=== PATIENT | male | born 1925 | race Caucasian/White ===

== ENCOUNTER 2016-12-14 12:32 | Emergency (ER) | payer MEDICARE ==
[~2016-12-14] VITALS: Ht 180.3 cm; Wt 75.0 kg
[~2016-12-14 12:32] MED LIST: ATOR40TA PO; CLON.5 PO; CORE25TA PO; FURO1TAB93 PO; HYDR-3533 PO; HYDR50TA15 PO; LEVO75TA3 PO; LISI-586 PO; O2
[2016-12-14 13:24] VITALS: BP 132/75; PULSE 65; RESP 16; TEMP 98.3; O2SAT 96
[2016-12-14] MEDS ORDERED: SODIUM CHLORIDE 0.9% FLUSH 5 ML FLUSH IVF PRN (14:15)
--- NOTE | 2016-12-14 14:17 | PD ---
HPI Chief Complaint: Lump, Cyst, Hernia Time Seen by Provider: 14:15 Travel History International Travel<30 days: No Contact w/Intl Traveler<30days: No Traveled to known affect area: No History of Present Illness HPI Patient comes in by EMS for report evaluation of mass on her right side of his neck patient reports it has been there for approximately a week he's been evaluated reports he is supposed to have surgery next Tuesday. Patient reports that he does have some pain with that occasionally as well as pain all over his body which he only takes pain medicine. Patient denies any chest pain, shortness of breath, nausea, vomiting, fevers. Patient reports pain around the lump primary to palpation. Per EMS patient's sent him in to have his hospice switched as well. PFSH Past Medical History Hx Anticoagulant Therapy: Yes Arthritis: Yes Autoimmune Disease: Yes Blood Disorders: No Depression: Yes Heart Rhythm Problems: No Cancer: No Cardiac Catheterization: Yes Cardiovascular Problems: Yes High Cholesterol: Yes Chest Pain: Yes Congestive Heart Failure: Yes Cerebrovascular Accident: No Coronary Artery Disease: Yes Diabetes: Yes Patient Takes Glucophage: No Diminished Hearing: No Endocrine: No Gastrointestinal Disorders: No Headaches: No Hypertension: Yes Kidney Stones: Yes Musculoskeletal: Yes Neurologic: No Psychiatric: No Respiratory: No Myocardial Infarction: Yes Seizures: No Sickle Cell Disease: No Thyroid Disease: Yes Tetanus Vaccination: > 5 Years Influenza Vaccination: No Past Surgical History AICD: No Cardiac Surgery: Yes (STENTS 2000) Coronary Stent: Yes (X 4) Joint Replacement: Yes (L TOTAL KNEE) Pacemaker: No Tonsillectomy: Yes Other Surgery: Yes Social History Alcohol Use: No Tobacco Use: No Substance Use: No Allergies-Medications (Allergen,Severity, Reaction): Coded Allergies: No Known Allergies (Verified , 12/14/16) Reported Meds & Prescriptions Reported Meds & Active Scripts Active Augmentin (Amoxicillin-Clavulanate) 875-125 mg Tab 875 Mg PO BID not for use in CrCl <30 ml/min. Reported Torsemide 20 Mg Tab 20 Mg PO DAILY Ativan (Lorazepam) 0.5 Mg Tab 0.5 Mg PO Q6H PRN Miralax Powder (Polyethylene Glycol 3350 Powder) 17 Gm Powd 17 Gm PO DAILY Mix and dissolve one measuring cap-ful (17 grams) in water or juice. Senna S (Sennosides-Docusate Sodium) 8.6-50 Mg Tab 1 Tab PO BID Colace (Docusate Sodium) 100 Mg Cap 100 Mg PO BID Duoneb (Ipratropium-Albuterol Neb) 0.5-2.5 Mg/3 Ml Neb 1 Nebule INH Q6HR NEB PRN Vesicare (Solifenacin) 5 Mg Tab 5 Mg PO DAILY Flomax (Tamsulosin HCl) 0.4 Mg Cap 0.4 Mg PO HS [place] Thyroid (Thyroid) 120 Mg Tab 120 Mg PO DAILY Pantoprazole (Pantoprazole Sodium) 40 Mg Tab 40 Mg PO DAILY Tylenol-Codeine #3 (Acetaminophen-Codeine) 300-30 mg Tab 1 Tab PO Q4H PRN K-Tab (Potassium Chloride) 20 Meq Tab 20 Meq PO BID Coumadin (Warfarin) 3 Mg Tab 3 Mg PO MOFR Coumadin (Warfarin) 2 Mg Tab 2 Mg PO SUTUWETHSA Lisinopril 5 Mg Tab 12.5 Mg PO DAILY Glipizide 5 Mg Tab 2.5 Mg PO BIDAC Take 30 minutes before a meal Restoril (Temazepam) 15 Mg Cap 15 Mg PO HS Lortab (Hydrocodone-Acetaminophen) 5-325 Mg Tab 1 Tab PO Q6H PRN Hydralazine (Hydralazine HCl) 25 Mg Tab 25 Mg PO BID Take with a meal Carvedilol 6.25 Mg Tab 6.25 Mg PO BID Review of Systems Except as stated in HPI: all other systems reviewed are Neg Physical Exam Narrative GENERAL: Well-developed, well nourished, in no acute distress, and non-ill appearing. SKIN: Warm and dry. HEAD: Atraumatic. Normocephalic. EYES: Pupils equal and round. EOMI. No scleral icterus. No injection or drainage. ENT: No nasal bleeding or discharge. Mucous membranes pink and moist. Uvula is midline. Patient speaking in full sentences and swallowing own saliva. NECK: Trachea midline. Supple. No nuclear rigidity. Tender right parotid mass. CARDIOVASCULAR: Regular rate and rhythm. No murmur appreciated. RESPIRATORY: No accessory muscle use. No respiratory distress. Clear to auscultation. Breath sounds equal bilaterally. GASTROINTESTINAL: Abdomen soft, non-tender, nondistended. Hepatic and splenic margins not palpable. Normal bowel sounds 4. No pulsatile mass. MUSCULOSKELETAL: No obvious deformities. No clubbing. No cyanosis. No edema. NEUROLOGICAL: Awake and alert. No obvious cranial nerve deficits. Motor grossly within normal limits. Normal speech. PSYCHIATRIC: Appropriate mood and affect; insight and judgment normal. Data Data Last Documented VS Vital Signs Date Time Temp Pulse Resp B/P Pulse Ox O2 Delivery O2 Flow Rate FiO2 12/14/16 20:19 63 16 135/90 97 12/14/16 18:31 Room Air 12/14/16 13:24 98.3 Orders Basic Metabolic Panel (Bmp) (12/14/16 14:10) Complete Blood Count With Diff (12/14/16 14:10) Ecg Monitoring (12/14/16 14:10) Iv Access Insert/Monitor (12/14/16 14:10) Oximetry (12/14/16 14:10) Sodium Chloride 0.9% Flush (Ns Flush) (12/14/16 14:15) Prothrombin Time / Inr (Pt) (12/14/16 14:10) Act Partial Throm Time (Ptt) (12/14/16 14:10) Ct Facial Bones W/O Iv Cont (12/14/16 ) Labs Laboratory Tests Test 12/14/16 14:20 White Blood Count 11.2 TH/MM3 Red Blood Count 4.11 MIL/MM3 Hemoglobin 11.8 GM/DL Hematocrit 35.6 % Mean Corpuscular Volume 86.7 FL Mean Corpuscular Hemoglobin 28.8 PG Mean Corpuscular Hemoglobin 33.2 % Concent Red Cell Distribution Width 15.8 % Platelet Count 178 TH/MM3 Mean Platelet Volume 7.4 FL Neutrophils (%) (Auto) 85.5 % Lymphocytes (%) (Auto) 8.7 % Monocytes (%) (Auto) 4.9 % Eosinophils (%) (Auto) 0.4 % Basophils (%) (Auto) 0.5 % Neutrophils # (Auto) 9.5 TH/MM3 Lymphocytes # (Auto) 1.0 TH/MM3 Monocytes # (Auto) 0.5 TH/MM3 Eosinophils # (Auto) 0.0 TH/MM3 Basophils # (Auto) 0.1 TH/MM3 CBC Comment DIFF FINAL Differential Comment Prothrombin Time 88.8 SEC Prothromb Time International 7.4 RATIO Ratio Activated Partial 63.2 SEC Thromboplast Time Sodium Level 135 MEQ/L Potassium Level 3.9 MEQ/L Chloride Level 100 MEQ/L Carbon Dioxide Level 26.6 MEQ/L Anion Gap 8 MEQ/L Blood Urea Nitrogen 40 MG/DL Creatinine 1.68 MG/DL Estimat Glomerular Filtration 39 ML/MIN Rate Random Glucose 195 MG/DL Calcium Level 8.5 MG/DL [facility] Medical Decision Making Medical Screen Exam Complete: Yes Emergency Medical Condition: Yes Differential Diagnosis Abscess, cellulitis, metastatic disease, parotiditis, other Narrative Course Discussed patient with this his director of home care hospice Lucio العلي, who reports patient is in hospice for heart disease. Reports lump began on the left improvement however over over the weekend developed swelling on the right. Reports left has improved. Reports patient has been on pain meds and amoxicillin for this. Denies any fevers. Patient in no obvious distress upon re-evaluation. All pertinent laboratory/ Radiology result(s) discussed with patient. Discussed patient with Dr. Palacio, who saw and evaluated the patient who is in agreement with plan of care and disposition. Any questions/concerns in reference to patient diagnosis/ condition discussed and clarified prior to patient's discharge. Reinforced sheer importance of close follow up with patient's primary physician or primary care clinic. Instructed patient to return to ED immediately, if symptoms return/ worsen. Pt showed understanding of above instructions. Further instructions and recommendations were detailed in discharge paperwork. Pt left without difficulty out of ED at discharge. Diagnosis Primary Impression: Parotiditis Patient Instructions: General Instructions Additional Instructions: Follow-up with your primary care physician into the days for reevaluation and recheck of your INR. Do not take Coumadin until INR rechecked and instructed use of by her primary care doctor. Stop taking amoxicillin and take antibiotic prescribed today. Continue doing warm compresses. Take all medication as prescribed. Return to the emergency department if symptoms get worse. Med/Other Pt SpecificInfo: Prescription(s) given Scripts Amoxicillin-Clavulanate (Augmentin)875-125 mg [id number] Mg PO BID #10 TAB Ref 0 not for use in CrCl <30 ml/min. Prov:Luis Palacio MD 12/14/16 Disposition: 01 DISCHARGE HOME Condition: Stable Juan Sharp Dec 14, 2016 14:17
[2016-12-14 14:32] LABS: AUTOMATED NEUTROPHIL # 9.5 TH/MM3 (1.8-7.7); BASOPHIL # 0.1 TH/MM3 (0-0.2); BASOPHIL % 0.5 % (0.0-2.0); EOSINOPHIL % 0.4 % (0.0-4.0); HEMATOCRIT 35.6 % (39.0-51.0); HEMO FLAGS DIFF FINAL; LYMPH % 8.7 % (9.0-44.0); MEAN CELL VOLUME 86.7 FL (80.0-100.0); MEAN CORPUSCULAR HEMOGLOBIN 28.8 PG (27.0-34.0); MEAN CORPUSCULAR HGB CONC 33.2 % (32.0-36.0); MONO % 4.9 % (0.0-8.0); NEUT % 85.5 % (16.0-70.0); PLATELET COUNT 178 TH/MM3 (150-450); RED BLOOD COUNT 4.11 MIL/MM3 (4.50-5.90); RED CELL DISTRIBUTION WIDTH 15.8 % (11.6-17.2); WHITE BLOOD COUNT 11.2 TH/MM3 (4.0-11.0)
[2016-12-14 14:53] LABS: BICARBONATE 26.6 MEQ/L (21.0-32.0)
[2016-12-14 15:01] LABS: POTASSIUM 3.9 MEQ/L (3.5-5.1)
[2016-12-14 15:20] LABS: APTT (PATIENT) 63.2 SEC (24.3-30.1); PROTHROMBIN TIME - PATIENT 88.8 SEC (9.8-11.6)
[2016-12-14 15:56] LABS: INTERNATIONAL NORMALIZED RATIO 7.4 RATIO
[2016-12-14] MEDS ORDERED: LISI-519 PO (16:11)
[2016-12-14] MEDS ORDERED: LORA-392 PO (16:11)
[2016-12-14] MEDS ORDERED: PANT40TA3 PO (16:11)
[2016-12-14] MEDS ORDERED: HYDR25TA35 PO (16:11)
[2016-12-14] MEDS ORDERED: TYLETAB34 PO (16:11)
[2016-12-14] MEDS ORDERED: GLIP5TAB8 PO (16:11)
[2016-12-14] MEDS ORDERED: HYDR-3533 PO (16:11)
[2016-12-14] MEDS ORDERED: TAMS5CAP PO (16:11)
[2016-12-14] MEDS ORDERED: VESI5TAB PO (16:11)
[2016-12-14] MEDS ORDERED: ARMO120T PO (16:11)
[2016-12-14] MEDS ORDERED: SENN8.6T8 PO (16:11)
[2016-12-14] MEDS ORDERED: COUM2TAB PO (16:11)
[2016-12-14] MEDS ORDERED: COLA100C3 PO (16:11)
[2016-12-14] MEDS ORDERED: COUM3TAB PO (16:11)
[2016-12-14] MEDS ORDERED: CARV6.252 PO (16:11)
[2016-12-14] MEDS ORDERED: REST15CA PO (16:11)
[2016-12-14] MEDS ORDERED: MIRA33504 PO (16:11)
[2016-12-14] MEDS ORDERED: POTA1TAB4 PO (16:11)
[2016-12-14] MEDS ORDERED: IPRASOL INH (16:11)
[2016-12-14] MEDS ORDERED: TORS20TA PO (16:13)
[2016-12-14 16:34] VITALS: BP 143/77; PULSE 66; RESP 22; O2SAT 93; O2SAT 96
--- NOTE | 2016-12-14 16:35 | RADRPT ---
EXAM DATE/TIME: 12/14/2016 16:02 [place] COMPARISON: No previous studies available for comparison. INDICATIONS: Right-sided painful facial mass. RADIATION DOSE: 36.7 CTDIvol (mGy) MEDICAL HISTORY: Hypertension. SURGICAL HISTORY: Tonsillectomy. ENCOUNTER: Initial ACUITY: 1 week PAIN SCORE: 7/10 LOCATION: Right facial TECHNIQUE: Volumetric scanning of the facial bones was performed. Using automated exposure control and adjustme nt of the mA and/or kV according to patient size, radiation dose was kept as low as reasonably achiev able to obtain optimal diagnostic quality images. FINDINGS: There does appear to be enlargement of the right parotid gland. There is induration of the fat surro unding the right parotid gland. No calcifications are seen. Stensen's duct does not appear dilated. It appears fairly symmetric. The submandibular glands are very symmetric being more prominent on t he right. There is some induration around the right submandibular gland. There are mildly prominent lymph nodes seen in the right neck in the anterior triangle between the submandibular and parotid gl ands. The nasopharynx, oropharynx and visualized portions of the hypopharynx appear normal. There is mucos al disease at the periphery of the right maxillary sinus. Otherwise the visualized paranasal sinuses are clear. The orbits appear normal. CONCLUSION: 1. Enlargement of the right parotid and to a lesser degree right submandibular glands. The indurati on is much more likely secondary to inflammatory change as opposed to neoplasm. Obstructing stones a re not seen. No drainable fluid collection is seen. 2. Mucosal disease at the right maxillary sinus. Moshe Lincoln MD on December 14, 2016 at 16:20 Board Certified Radiologist. This report was verified electronically.
[2016-12-14] MEDS ORDERED: AUGM875T PO (16:59)
--- NOTE | 2016-12-14 17:18 | PD ---
Data Data Last Documented VS Vital Signs Date Time Temp Pulse Resp B/P Pulse Ox O2 Delivery O2 Flow Rate FiO2 12/14/16 16:34 66 22 143/77 96 Room Air 12/14/16 13:24 98.3 Orders Basic Metabolic Panel (Bmp) (12/14/16 14:10) Complete Blood Count With Diff (12/14/16 14:10) Ecg Monitoring (12/14/16 14:10) Iv Access Insert/Monitor (12/14/16 14:10) Oximetry (12/14/16 14:10) Sodium Chloride 0.9% Flush (Ns Flush) (12/14/16 14:15) Prothrombin Time / Inr (Pt) (12/14/16 14:10) Act Partial Throm Time (Ptt) (12/14/16 14:10) Ct Facial Bones W/O Iv Cont (12/14/16 ) Labs Laboratory Tests Test 12/14/16 14:20 White Blood Count 11.2 TH/MM3 Red Blood Count 4.11 MIL/MM3 Hemoglobin 11.8 GM/DL Hematocrit 35.6 % Mean Corpuscular Volume 86.7 FL Mean Corpuscular Hemoglobin 28.8 PG Mean Corpuscular Hemoglobin 33.2 % Concent Red Cell Distribution Width 15.8 % Platelet Count 178 TH/MM3 Mean Platelet Volume 7.4 FL Neutrophils (%) (Auto) 85.5 % Lymphocytes (%) (Auto) 8.7 % Monocytes (%) (Auto) 4.9 % Eosinophils (%) (Auto) 0.4 % Basophils (%) (Auto) 0.5 % Neutrophils # (Auto) 9.5 TH/MM3 Lymphocytes # (Auto) 1.0 TH/MM3 Monocytes # (Auto) 0.5 TH/MM3 Eosinophils # (Auto) 0.0 TH/MM3 Basophils # (Auto) 0.1 TH/MM3 CBC Comment DIFF FINAL Differential Comment Prothrombin Time 88.8 SEC Prothromb Time International 7.4 RATIO Ratio Activated Partial 63.2 SEC Thromboplast Time Sodium Level 135 MEQ/L Potassium Level 3.9 MEQ/L Chloride Level 100 MEQ/L Carbon Dioxide Level 26.6 MEQ/L Anion Gap 8 MEQ/L Blood Urea Nitrogen 40 MG/DL Creatinine 1.68 MG/DL Estimat Glomerular Filtration 39 ML/MIN Rate Random Glucose 195 MG/DL Calcium Level 8.5 MG/DL [facility] Supervised Visit with TORSTEN: Yes Narrative Course The history, exam, and medical decision-making in the associated mid-level provider note were completed with my assistance. I reviewed and agree with the findings presented. I attest that I had a [id number] encounter with the patient on the same day, and personally performed and documented my assessment and findings in the medical record. *My assessment and Findings: 89 year-old man, right sided parotid swelling for couple weeks. Apparently it sounds like the left before that. On the [facility] hospice for cardiac disease. Sent in for evaluation for the swelling. CT scan shows inflammation of the parotid. On examination I do not see any obvious purulence or fluctuance. Is likely viral. We'll switch him to Augmentin. Recommend outpatient follow-up. INR is elevated. Hold Coumadin. Diagnosis Primary Impression: Parotiditis Patient Instructions: General Instructions Additional Instruction: Follow-up with your primary care physician into the days for reevaluation and recheck of your INR. Do not take Coumadin until INR rechecked and instructed use of by her primary care doctor. Stop taking amoxicillin and take antibiotic prescribed today. Continue doing warm compresses. Take all medication as prescribed. Return to the emergency department if symptoms get worse. Scripts Amoxicillin-Clavulanate (Augmentin)875-125 mg [id number] Mg PO BID #10 TAB Ref 0 not for use in CrCl <30 ml/min. Prov:Luis aPlacio MD 12/14/16 Disposition: 01 DISCHARGE HOME Condition: Stable Luis Palacio MD Dec 14, 2016 17:18
[2016-12-14 18:31] VITALS: BP 137/68; PULSE 64; RESP 18; O2SAT 97
[2016-12-14 20:19] VITALS: BP 135/90
== END 2016-12-14 20:33 | disposition home or self-care (01) ==
LOC: NEPA 12:32
DX: K11.20 Sialoadenitis, unspecified (principal); E78.00 Pure hypercholesterolemia, unspecified; I50.9 Heart failure, unspecified; I25.10 Atherosclerotic heart disease of native coronary artery without angina pectoris; E11.9 Type 2 diabetes mellitus without complications; I10 Essential (primary) hypertension; Z87.442 Personal history of urinary calculi; I25.2 Old myocardial infarction; Z79.01 Long term (current) use of anticoagulants
CPT/HCPCS: 70486; 80048; 85025; 85610; 85730